=== PATIENT | male | born 1965 | race Caucasian/White ===

== ENCOUNTER 2017-07-02 15:10 | Emergency (ER) | payer SELFPAY ==
[2017-07-02 15:18] VITALS: BP 149/93; TEMP 98.2
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
[2017-07-02 16:44] VITALS: PULSE 62; RESP 16; O2SAT 94
--- NOTE | 2017-07-02 17:20 | ASMTCMCOM ---
CM Note CM Note Notes: Pt records were seen at the request of ED DORA Yanes. Pt had ETOH intoxication and was on an [employer] hold. He made a comment to [facility] that he had no place to live/ stay and he became combative Pt was asleep when CM went to the room and no direct contact was made. ED RN requested a note for future visits for potential resource referrals. Date Signed: 07/02/2017 05:19 PM Electronically Signed By:Mirna Rangel LCSW
[2017-07-02] MEDS ORDERED: CHLORDIAZEPOXIDE 25MG PREPK#6 BTL TAKEHOME ONE (19:10)
== END 2017-07-02 19:38 | disposition home or self-care (01) ==
LOC: EDUNIT#
PROC: 0HQ1XZZ Repair Face Skin, External Approach (ICD-10-PCS; principal; 2017-07-02)
DX: S01.112A Laceration without foreign body of left eyelid and periocular area, initial encounter (principal); F10.929 Alcohol use, unspecified with intoxication, unspecified; F17.200 Nicotine dependence, unspecified, uncomplicated; W01.198A Fall on same level from slipping, tripping and stumbling with subsequent striking against other object, initial encounter; Y92.521 Bus station as the place of occurrence of the external cause

== ENCOUNTER 2018-05-14 17:17 | Emergency (ER) | payer OTHER, MEDICAID ==
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
[2018-05-14 18:51] VITALS: BP 109/71
== END 2018-05-14 18:49 ==
LOC: EDUNIT#
DX: S40.812A Abrasion of left upper arm, initial encounter (principal); F17.200 Nicotine dependence, unspecified, uncomplicated; V49.60XA Unspecified car occupant injured in collision with unspecified motor vehicles in traffic accident, initial encounter